=== PATIENT | male | born 1965 | race American Indian/Alaskan Native ===

== ENCOUNTER 2017-09-04 15:44 | Emergency (ER) | payer SELFPAY ==
[2017-09-04 16:14] LABS: Basophils % (Auto) 1.2 % (0.0-1.8); Eosinophils % (Auto) 2.8 % (0.0-4.3); Hematocrit 41.3 % (35.5-45.6); Hemoglobin 14.3 gm/dl (11.8-15.2); Mean Corpuscular HGB Conc 35 % (32-34); Mean Corpuscular Hemoglobin 33 pg (28-32); Mean Corpuscular Volume 94 fl (84-94); Platelet Count 81 K/mm3 (140-440); Red Cell Distribution Width 14.1 % (13.2-15.2); White Blood Count 8.3 K/mm3 (4.5-11.0)
--- NOTE | 2017-09-04 23:16 | Emergency Department Report ---
HPI - General Chief Complaint: Recheck/Abnormal Lab/Rx Time Seen by Provider: 09/04/17 23:05 - HPI HPI: Room 3 The patient is a 52-year-old male presenting with a chief complaint of thrombocytopenia. The patient had labs drawn at his primary physician's office 08/21/2017. The patient states he received a call today from the primary physician instructed him that his platelet count was low (80,000) and that he should come to the emergency department. The patient claims to feeling tired. Patient also states that for 2 to 3 days he has had pain in his right forearm and the joints of his knuckles bilaterally. Patient denies any preceding trauma. Patient denies any history of bruising or rashes. Patient denies any history of fever Location: [see above] Duration: [see above] Quality: Soreness Severity: Moderate Modifying factors: [see above] Context: [see above] Mode of transportation: [not driving] ED Past Medical Hx - Past Medical History Previous Medical History?: Yes Hx Hypertension: Yes Hx Liver Disease: Yes (hepatitis C) Hx Arthritis: Yes - Surgical History Past Surgical History?: No - Family History Family history: no significant - Social History Smoking Status: Current Every Day Smoker (1/2 pack per day) Substance Use Type: None (denies illicit drug use), Alcohol (2 times per week) - Medications Home Medications: Home Medications Medication Instructions Recorded Confirmed Last Taken Type Ibuprofen [Motrin 200 MG tab] 800 mg PO Q6H PRN 01/23/14 04/19/14 Unknown History Cyclobenzaprine [Flexeril 10 MG 10 mg PO BID PRN #60 tablet 04/19/14 Unknown Rx TAB] Lisinopril [Zestril TAB] 20 mg PO QDAY #90 tablet 04/19/14 Unknown Rx ED Review of Systems ROS: Stated complaint: PLATELATE COUNT LOW Other details as noted in HPI Comment: All other systems reviewed and negative Constitutional: denies: chills, fever Eyes: denies: eye pain, eye discharge, vision change ENT: denies: ear pain, throat pain Respiratory: denies: cough, shortness of breath, wheezing Cardiovascular: denies: chest pain, palpitations Endocrine: no symptoms reported Gastrointestinal: denies: abdominal pain, nausea, diarrhea Genitourinary: denies: urgency, dysuria Musculoskeletal: arthralgia, myalgia Skin: denies: rash, lesions Neurological: denies: headache, weakness, paresthesias Psychiatric: denies: anxiety, depression Hematological/Lymphatic: denies: easy bruising Physical Exam - Physical Exam Vital Signs: Vital Signs 09/04/17 09/04/17 15:48 22:51 Temperature 98.9 F 98.5 F Pulse Rate 97 H 76 Respiratory 18 15 Rate Blood Pressure 145/97 Blood Pressure 152/89 [Left] O2 Sat by Pulse 99 100 Oximetry Physical Exam: GENERAL: The patient is well-developed well-nourished male lying on stretcher not appearing to be in acute distress. [] HEENT: Normocephalic. Atraumatic. Extraocular motions are intact. Patient has moist mucous membranes. NECK: Supple. Trachea midline CHEST/LUNGS: Clear to auscultation. There is no respiratory distress noted. HEART/CARDIOVASCULAR: Regular. There is no tachycardia. There is no gallop rub or murmur. ABDOMEN: Abdomen is soft, nontender. Patient has normal bowel sounds. There is no abdominal distention. SKIN: There is no rash. There is no edema. There is no diaphoresis. NEURO: The patient is awake, alert, and oriented. The patient is cooperative. The patient has normal speech MUSCULOSKELETAL: There is no evidence of acute injury. ED Course Vital Signs 09/04/17 09/04/17 15:48 22:51 Temperature 98.9 F 98.5 F Pulse Rate 97 H 76 Respiratory 18 15 Rate Blood Pressure 145/97 Blood Pressure 152/89 [Left] O2 Sat by Pulse 99 100 Oximetry - Consultations Consultation #1: 09/04/17 23:12 Hematology paged (Dr. Green) 09/04/17 23:16 09/04/17 23:[address] Green-states patient does not need to be admitted to the hospital for platelet count of 81,000. May have outpatient workup ED Medical Decision Making - Lab Data Result diagrams: 09/04/17 15:57 - Differential Diagnosis ITP, alcohol abuse, cytopenia, cirrhosis, essential thrombocytopenia Critical care attestation.: If time is entered above; I have spent that time in minutes in the direct care of this critically ill patient, excluding procedure time. ED Disposition Clinical Impression: Thrombocytopenia, Arthralgia Disposition: DC-01 TO HOME OR SELFCARE Is pt being admited?: No Does the pt Need Aspirin: No Condition: Stable Instructions: Thrombocytopenia (ED) Additional Instructions: Return to the emergency department immediately should you develop worsening symptoms, fever, inability to tolerate food or liquid or any other concerns. Referrals: PRIMARY CARE, [Primary Care Provider] - 3-5 Days LB VU MD [Staff Physician] - [facility] (Dr. Vu is a sugar grinder. Please follow up with them for further evaluation of your low platelet count) Time of Disposition: 23:22
[2017-09-04 23:48] VITALS: BP 137/85
== END 2017-09-04 23:47 | disposition home or self-care (01) ==
LOC: ED 15:44
DX: D69.6 Thrombocytopenia, unspecified (principal); I10 Essential (primary) hypertension; M19.90 Unspecified osteoarthritis, unspecified site; F17.210 Nicotine dependence, cigarettes, uncomplicated
CPT/HCPCS: 36415; 85025; 99283

== ENCOUNTER 2021-12-18 05:48 | Inpatient (IN) | payer MEDICAID ==
[~2021-12-18 05:48] MED LIST: ceFAZolin/Water 2 GM/20 ML 2 GM/20 ML SYRINGE IV NR
[2021-12-18] MEDS ORDERED: LACTATED RINGERS 1,000 ML ONE (06:54)
[2021-12-18] MEDS ORDERED: NEOMY 40 MG/POLYMYXIN B 200,000 UNITS/ML (GU) AMPULE IR ONE ×3 (07:20→08:58)
[2021-12-18] MEDS ORDERED: LIDOCAINE MPF (2%) 20 MG/1 ML VIAL 5 ML ONE (07:27)
[2021-12-18] MEDS ORDERED: MIDAZOLAM 2 MG/2 ML INJ ONE ×2 (07:28→07:52)
[2021-12-18] MEDS ORDERED: propofoL 200 MG/20 ML VIAL IV ONE (07:28)
[2021-12-18] MEDS ORDERED: fentaNYL 100 MCG/2 ML INJ ONE ×3 (07:50→09:11)
[2021-12-18] MEDS ORDERED: BUPIVACAINE/PF (0.25%) 2.5 MG/ML 30 ML VIAL INFILTRATI ONE (07:51)
[2021-12-18] MEDS ORDERED: dexAMETHasone 20 MG/5 ML VIAL ONE ×2 (07:52→10:33)
[2021-12-18] MEDS ORDERED: LIDOCAINE (1%) 10 MG/1 ML VIAL 20 ML MDV ONE (07:52)
[2021-12-18] MEDS ORDERED: LACTATED RINGERS 1,000 ML IV SCH (08:00)
[2021-12-18] MEDS ORDERED: KETOROLAC 30 MG/1 ML INJ ONE (08:19)
[2021-12-18] MEDS ORDERED: MORPHINE 10 MG/1 ML INJ ONE (08:19)
[2021-12-18] MEDS ORDERED: BUPIVACAINE/PF (0.5%) 5 MG/1 ML 10 ML VIAL INFILTRATI ONE ×2 (08:19→08:58)
[2021-12-18] MEDS ORDERED: SODIUM CHLORIDE 0.9% 100 ML ONE (08:20)
[2021-12-18] MEDS ORDERED: SODIUM CHLORIDE 0.9% 50 ML ONE (08:20)
[2021-12-18] MEDS ORDERED: HYDROmorphone 1 MG/1 ML INJ ONE (08:45)
[2021-12-18] MEDS ORDERED: CITRIC ACID-SOD CITRATE 500 ML IV ONE (08:51)
[2021-12-18] MEDS ORDERED: SODIUM CHLORIDE 0.9% IRR 1,500 ML BOTTLE IR ONE (08:58)
[2021-12-18] MEDS ORDERED: SODIUM CHLORIDE 0.9% 100 ML IVPB IV ONE (08:58)
[2021-12-18] MEDS ORDERED: MORPHINE 10 MG/1 ML INJ IM ONE (08:58)
[2021-12-18] MEDS ORDERED: SODIUM CHLORIDE 0.9% 50 ML IVPB IV ONE (08:58)
[2021-12-18] MEDS ORDERED: WATER FOR IRRIG STERILE 1,500 ML BOTTLE IR ONE (08:58)
[2021-12-18] MEDS ORDERED: KETOROLAC 30 MG/1 ML INJ IV ONE (08:58)
[2021-12-18] MEDS ORDERED: ONDANSETRON 4 MG/2 ML INJ ONE (09:11)
[2021-12-18] MEDS ORDERED: ESMOLOL 100 MG/10 ML INJ IV ONE (09:11)
[2021-12-18] MEDS ORDERED: ROCURONIUM 50 MG/5 ML INJ IV ONE (09:11)
[2021-12-18] MEDS ORDERED: ONDANSETRON 4 MG/2 ML INJ IV PRN ×2 (09:43→11:33)
[2021-12-18] MEDS ORDERED: HYDROmorphone 1 MG/1 ML INJ IV PRN ×2 (09:43)
[2021-12-18] MEDS ORDERED: SUGAMMADEX SODIUM 200 MG/2 ML VIAL IV ONE (09:50)
--- NOTE | 2021-12-18 10:03 | Anesthesia Day of Surgery ---
Anesthesia Day of Surgery - Day of Surgery Patient Examined: Yes Patient H&P Reviewed: Yes Patient is NPO: Yes
--- NOTE | 2021-12-18 10:07 | Anesthesia Consultation ---
Anesthesia Consult and Med Hx Date of service: 12/18/21 - Airway Anesthetic Teeth Evaluation: Good ROM Head & Neck: Adequate Mental/Hyoid Distance: Adequate Mallampati Class: Class III Intubation Access Assessment: Possibly Difficult - Pulmonary Exam CTA: Yes - Cardiac Exam Cardiac Exam: RRR - Pre-Operative Health Status ASA Pre-Surgery Classification: ASA3 Proposed Anesthetic Plan: General Nerve Block: TAMY, - Pulmonary Hx Smoking: Yes (1/2 PPD) Hx Asthma: No Hx Respiratory Symptoms: No COPD: No Hx Sleep Apnea: No (TRINA PRE SCREEN HIGH RISK) - Cardiovascular System Hx Hypertension: Yes Hx Heart Attack/AMI: No - Central Nervous System Hx Seizures: No CVA: No Hx Back Pain: Yes Hx Psychiatric Problems: No - Endocrine Hx Renal Disease: No Hx Cirrhosis: No Hx Liver Disease: Yes (HCV) Hx Insulin Dependent Diabetes: No Hx Thyroid Disease: No - Hematic Hx Anemia: Yes (hx anemia + thrombocytopenia 2/2 GI bleed s/p transfusion 09/2021) Hx Sickle Cell Disease: No - Other Systems Hx Alcohol Use: No Hx Substance Use: No Hx Cancer: No Hx Obesity: No
[2021-12-18] MEDS ORDERED: SODIUM CHLORIDE 0.9% 1000 ML 1,000 ML ONE (10:33)
[2021-12-18] MEDS ORDERED: ACETAMINOPHEN 325 MG TAB PO PRN (11:33)
--- NOTE | 2021-12-18 11:33 | History and Physical Report ---
History of Present Illness Date of admission: 12/18/21 05:48 Chief complaint: My leg hurts History of present illness: 56 YO Male with Severe DJD, HTN, GERD, Gout presents for evaluation. Patient states that he has experienced severe pain in his right leg and hip. Patient seen and evaluated by orthopedic surgery service. Patient admitted to [facility] for further care and evaluation of the aforementioned symptoms. Patient seen and evaluated by orthopedic surgery service patient is pending surgical intervention. Patient denies fever, chills, chest pain, palpitation, productive cough, skin rash, recent ill contacts, known exposure to COVID-19. No prior mission for review. All medication listed at time of admission has been reconciled. Past History Past Medical History: arthritis, other (See HPI) Past Surgical History: total hip replacement Social history: single. denies: smoking, alcohol abuse Family history: diabetes, hypertension Medications and Allergies Allergies Allergy/AdvReac Type Severity Reaction Status Date / Time No Known Allergies Allergy Verified 12/12/21 12:56 Home Medications Medication Instructions Recorded Confirmed Last Taken Type Acetaminophen [Tylenol Extra 1,000 mg PO PRN PRN 11/28/21 12/12/21 Unknown History Strength] Omeprazole 40 mg PO DAILY 11/28/21 12/18/21 12/17/21 09:00 History allopurinoL [Zyloprim] 100 mg PO QDAY 11/28/21 12/18/21 12/17/21 09:00 History amLODIPine [Norvasc] 10 mg PO DAILY 11/28/21 12/18/21 12/18/21 04:00 History lisinopriL [Zestril TAB] 10 mg PO QDAY 11/28/21 12/18/21 12/17/21 09:00 History Active Meds: Active Medications Hydromorphone HCl (Hydromorphone 1 Mg/1 Ml Inj) 0.25 mg IV Q10MIN PRN PRN Reason: Pain, Moderate (4-6) Stop: 12/18/21 20:00 Hydromorphone HCl (Hydromorphone 1 Mg/1 Ml Inj) 0.5 mg IV Q10MIN PRN PRN Reason: Pain , Severe (7-10) Stop: 12/18/21 20:00 Cefazolin Sodium (Ancef/Sterile Water 2 Gm/20 Ml) 2 gm in 20 mls @ 80 mls/hr IV PREOP NR; Protocol Stop: 12/18/21 23:59 Lactated Ringer's (Lactated Ringers) 1,000 mls @ 75 mls/hr IV DIRECT PRAFUL Last Admin: 12/18/21 07:10 Dose: 75 mls/hr Ondansetron HCl (Ondansetron 4 Mg/2 Ml Inj) 4 mg IV ONCE PRN PRN Reason: Nausea And Vomiting Stop: 12/18/21 13:00 Review of Systems Constitutional: no weight loss, no weight gain, no fever, no chills Ears, nose, mouth and throat: no ear pain, no tinnitis, no nose pain Cardiovascular: no orthopnea, no palpitations, no rapid/irregular heart beat, no edema Respiratory: no cough, no cough with sputum Gastrointestinal: no abdominal pain, no vomiting, no constipation, no change in bowel habits Genitourinary Male: no hematuria, no urinary frequency, no nocturia, no incontinence, no erectile dysfunction Rectal: no pain, no bleeding Musculoskeletal: arthritis, other (Right hip cezar), no shooting arm pain, no arm numbness/tingling, no low back pain Integumentary: no rash, no pruritis, no sores, no wounds, no boils Neurological: no head injury, no paralysis, no parathesias, no numbness, no seizures, no syncope Psychiatric: no anxiety, no sleep disturbances, no disorientation Endocrine: no heat intolerance, no polyphagia, no polyuria, no nocturia, no excessive sweating Hematologic/Lymphatic: no easy bruising Allergic/Immunologic: no urticaria, no wheezing Exam - Constitutional Vitals: Temp Pulse Resp BP Pulse Ox 99.8 F H 107 H 17 124/89 99 12/18/21 06:40 12/18/21 08:12 12/18/21 08:12 12/18/21 08:12 12/18/21 08:12 General appearance: Present: mild distress - EENT Eyes: Present: PERRL ENT: hearing intact, clear oral mucosa - Neck Neck: Present: supple, normal ROM - Respiratory Respiratory effort: normal Respiratory: bilateral: CTA - Cardiovascular Heart Sounds: Present: S1 & S2. Absent: rub, click - Extremities Extremities: pulses symmetrical, No edema Peripheral Pulses: within normal limits - Abdominal General gastrointestinal: Present: soft, non-tender, non-distended, normal bowel sounds Male genitourinary: Present: normal - Integumentary Integumentary: Present: clear, warm, dry - Musculoskeletal Musculoskeletal: gait normal, strength equal bilaterally - Psychiatric Psychiatric: appropriate mood/affect, intact judgment & insight - Neurologic Neurologic: CNII-XII intact, moves all extremities Assessment and Plan - Patient Problems (1) Osteoarthritis of right hip Current Visit: Yes Status: Acute Qualifiers: Osteoarthritis type: unspecified Qualified Code(s): M16.11 - Unilateral primary osteoarthritis, right hip Plan to address problem: Orthopedic surgery team consulted. Patient pending surgical intervention. Pain control, supportive care, physical therapy consulted, (2) Hypertension Current Visit: Yes Status: Acute Qualifiers: Hypertension type: primary hypertension Qualified Code(s): I10 - Essential (primary) hypertension Plan to address problem: Monitor blood pressure every shift, continue medical management. (3) GERD (gastroesophageal reflux disease) Current Visit: Yes Status: Acute Qualifiers: Esophagitis presence: without esophagitis Qualified Code(s): K21.9 - Gastro-esophageal reflux disease without esophagitis Plan to address problem: PPI therapy, supportive care. (4) Gout Current Visit: Yes Status: Acute Plan to address problem: Continue medical management, supportive care. No acute exacerbation at this time. (5) DVT prophylaxis Current Visit: Yes Status: Acute Plan to address problem: SCD to bilateral lower extremities while in bed, prophylactic anticoagulation. (6) Advance care planning Current Visit: Yes Status: Acute Plan to address problem: Disease initially conducted, care plan discussed, diagnosis discussed, prognosis discussed, patient is full code. Patient acknowledges understanding and agreement with care plan. +30 minutes.
[2021-12-18] MEDS ORDERED: SODIUM CHLORIDE 0.9% 1000 ML 1,000 ML IV SCH (11:45)
--- NOTE | 2021-12-18 12:07 | XRay Report ---
Right hip one view INDICATION: Postop FINDINGS: Right hip arthroplasty is satisfactory position. No acute fracture. Signer Name: Glen Schuster MD Signed: 12/18/2021 12:03 PM Workstation Name: [id number]
--- NOTE | 2021-12-18 12:16 | Operative Report ---
Operative Report Operative Report: OP REPORT : Preop diagnosis : Osteoarthritis end-stage, right hip Postop diagnosis: Same Procedure: Elective total hip replacement, RIGHT hip Surgeon: Rickey Peters MD ophthalmic surgical assistant: none Anesthesia: General with endotracheal tube Details of operative technique : Patient was prepared in the holding area having been cleared for surgery for elective total hip replacement, right hip. Then brought to the operating room where he underwent satisfactory general anesthesia and was placed in the decubitus position with the right hip up. All pressure points were well-padded. Axillary roll was placed under the left axilla and the hip was prepped and draped in the usual sterile fashion with DuraPrep solution per total hip protocol. Ancef 2 g was administered IV at the start of the case. Space suits were worn by the operating room team. The hip was opened through a straight kevin-lateral approach. Bleeders were clamped and cauterized with the Bovie. Dissection was carried down through the fibrofatty layer and the tensor fascial was split the length of the incision. A Charnley retractor was placed and the hip was externally rotated. The Gluteus medius and minimus were then removed from the bone. The entire capsule was excised utilizing an inverted T incision and retractors were placed anteriorly and posteriorly. The femoral head was able to be dislocated revealing severe osteoarthritis affecting both sides of the joint. Utilizing a template the neck cut was made with an oscillating saw removing the femoral head and leaving a minimal of 10 mm of femoral neck. Attention was then turned toward the socket. The labral tissue and capsular remnants were removed outlining the boundaries of the acetabulum. Socket was then deepened as it was also expanded to a size 50 mm. The patient was noted to have excellent bone with good cancellous bleeding. A specially coated acetabular cup with outside diameter 50 mm was impacted in place. This had excellent rotational stability and was placed in the anatomic position with the correct amount of anteversion. 32 mm liner was placed into the cup and impacted securely. Attention was then directed to the proximal femur. The leg was flexed up and placed into the sterile bag. A box osteotome was utilized to create a lateral starting point and the canal was reamed with a simple starter reamer and progressed up to a #10 size reamer. Following this the occipital femur was prepared with broaches up to a #12 size stem. This produced excellent purchase with outstanding rotational stability ; the patient required a +0 neck length which gave excellent orthodox of leg lengths and stability. Following this the wound was then irrigated copiously with antibiotic solution. The actual [employer] stem #12 with high offset was impacted in place and a 32 mm Oxinium head was placed on the stem and the hip was reduced. Hip was then taken through full range of motion and the shuck test was negative as the hip proved to be quite stable in all directions. The wound was then irrigated once again with antibiotic solution. Capsular tissue and deep muscle was repaired with #2 Ethibond suture for the gluteus medius which were repaired back to the bone. It was oversewn with #2 Ethibond suture. The tensor fascia maria luz was then repaired with a running locking suture of 0 Vicryl and the subcu layers were closed with 2-0 Vicryl. An occlusive compressive dressing was applied after Steri-Strips were placed on the skin. Patient was then awakened and taken to recovery room in excellent condition. Estimated blood loss: 250 cc (cell saver was utilized and approximately 150 was given back. Drains : None Complications : Non
--- NOTE | 2021-12-18 15:12 | Post Anesthesia Evaluation ---
- Post Anesthesia Evaluation Patient Participated: Yes Airway Patent: Yes Stable Respiratory Function: Yes Nausea/Vomiting: No Temp > 96.8F: Yes Pain Manageable: Yes Adequeate Hydration: Yes Anesthesia Complications: No Block Receding Appropriately: Yes Patient on Ventilator: No
[2021-12-18] MEDS: oxyCODONE /ACETAMINOPHEN 5-325MG TAB PO PRN (21:48)
[2021-12-18] MEDS: HEPARIN 5,000 UNIT/1 ML VIAL SUB-Q SCH (21:48)
[2021-12-19] MEDS: oxyCODONE /ACETAMINOPHEN 5-325MG TAB PO PRN ×3 (03:04→15:26)
[2021-12-19 05:54] LABS: Basophils % (Auto) 0.2 % (0.0-1.8); Hemoglobin 7.9 gm/dl (11.8-15.2); Lymphocytes # (Auto) 1.7 K/mm3 (1.2-5.4); Lymphocytes % (Auto) 11.6 % (13.4-35.0); Mean Corpuscular HGB Conc 32 % (32-34); Mean Corpuscular Volume 91 fl (84-94); Monocytes # (Auto) 1.1 K/mm3 (0.0-0.8); Monocytes % (Auto) 7.5 % (0.0-7.3); Platelet Count 133 K/mm3 (140-440); Red Blood Count 2.75 M/mm3 (3.65-5.03)
[2021-12-19] MEDS: HEPARIN 5,000 UNIT/1 ML VIAL SUB-Q SCH ×2 (09:54→21:50)
[2021-12-19] MEDS: LISINOPRIL 20 MG TAB PO SCH (09:55)
[2021-12-19] MEDS: amLODIPine 10 MG TAB PO SCH (09:55)
[2021-12-19] MEDS: PANTOPRAZOLE 40 MG TAB PO SCH (09:55)
[2021-12-19] MEDS: allopurinoL 100 MG TAB PO SCH (09:56)
[2021-12-19] MEDS ORDERED: NON-FORMULARY EACH (Omeprazole [Omeprazole] 40 MG Capsule.Dr) PO SCH (10:00)
--- NOTE | 2021-12-19 16:41 | Progress Note ---
Subjective Date of service: 12/19/21 Principal diagnosis: POD #1 S/P THR RIGHT Hip Interval history: S : 1st Postop day, S/P THR RIGHT hip; doing well with physical therapy and having no major complaints whatsoever. O : She is awake and alert lying in hospital bed. Examination of the right hip shows new dressing applied (from excessive serosanguineous drainage last evening) no obvious drainage today. Able to do a straight leg raise with assistance. Postoperative proximal thigh pain. A: Satisfactory postop course, total hip replacement, RIGHT hip P : He is doing extremely well for his first postoperative day. Spoke with physical therapy and they say he had an excellent day with therapy. Strong probability that he could be discharged home tomorrow with of course a home health care nurse to monitor the wound and home health physical therapy that would come to his house at least 3 days a week. He will need on discharge : (1) Home health physical therapy with total hip protocol / partial weightbearing,; (2) DVT prophylaxis with Eliquis or other NOAC drug; (3) appropriate pain medication in the form of hydrocodone 5 mg every 6 hours as needed; (4) occlusive dressing placed on day of discharge; (5) follow-up in office in 2 weeks Objective Vital signs: Vital Signs - 12hr 12/19/21 12/19/21 06:20 08:26 Temperature 97.8 F 98.7 F Pulse Rate 102 H 101 H Respiratory 18 18 Rate Blood Pressure 145/78 O2 Sat by Pulse 94 97 Oximetry - Labs CBC & BMP: 12/19/21 04:38 Labs: Abnormal lab results 12/19/21 Range/Units 04:38 WBC 14.2 H (4.5-11.0) K/mm3 RBC 2.75 L (3.65-5.03) M/mm3 Hgb 7.9 L (11.8-15.2) gm/dl Hct 25.0 L (35.5-45.6) % RDW 19.0 H (13.2-15.2) % Plt Count 133 L (140-440) K/mm3 Lymph % (Auto) 11.6 L (13.4-35.0) % [place]quois % (Auto) 7.5 H (0.0-7.3) % [place] # (Auto) 1.1 H (0.0-0.8) K/mm3 Seg Neutrophils % 80.7 H (40.0-70.0) % Seg Neutrophils # 11.4 H (1.8-7.7) K/mm3
[2021-12-19] MEDS: HYDROmorphone 1 MG/1 ML INJ IV PRN (20:44)
[2021-12-20] MEDS: oxyCODONE /ACETAMINOPHEN 5-325MG TAB PO PRN ×2 (06:33→19:53)
--- NOTE | 2021-12-20 08:08 | Progress Note ---
Assessment and Plan Assessment and Plan - Patient Problems (1) Status post right hip replacement Current Visit: Yes Status: Acute Qualifiers: Osteoarthritis type: unspecified Qualified Code(s): M16.11 - Unilateral primary osteoarthritis, right hip Physical therapy to be continued Discharge planning per orthopedics (2) Hypertension Current Visit: Yes Status: Acute Qualifiers: Hypertension type: primary hypertension Qualified Code(s): I10 - Essential (primary) hypertension Plan to address problem: Monitor blood pressure every shift, continue medical management. (3) GERD (gastroesophageal reflux disease) Current Visit: Yes Status: Acute Qualifiers: Esophagitis presence: without esophagitis Qualified Code(s): K21.9 - Gastro-esophageal reflux disease without esophagitis Plan to address problem: PPI therapy, supportive care. (4) Gout Current Visit: Yes Status: Acute Plan to address problem: Continue medical management, supportive care. No acute exacerbation at this time. (5) DVT prophylaxis Current Visit: Yes Status: Acute Plan to address problem: SCD to bilateral lower extremities while in bed, prophylactic anticoagulation. (6) Advance care planning Current Visit: Yes Status: Acute Plan to address problem: Disease initially conducted, care plan discussed, diagnosis discussed, prognosis discussed, patient is full code. Patient acknowledges understanding and agree ment with care plan. +30 minutes. Subjective Date of service: 12/19/21 Principal diagnosis: POD #1 S/P THR RIGHT Hip Interval history: 56 YO Male with Severe DJD, HTN, GERD, Gout presents for evaluation. Patient states that he has experienced severe pain in his right leg and hip. Patient seen and evaluated by orthopedic surgery service. Patient admitted to [facility] for further care and evaluation of the aforementioned symptoms. Patient seen and evaluated by orthopedic surgery service patient is pending surgical intervention. Patient denies fever, chills, chest pain, palpitation, productive cough, skin rash, recent ill contacts, known exposure to COVID-19. No prior mission for review. All medication listed at time of admission has been reconciled. 12/19/2021 Status post right hip replacement today Postop doing well Objective - Constitutional Vitals: Vital Signs - 12hr 12/19/21 12/20/21 12/20/21 23:25 00:53 03:32 Temperature 98.0 F 98.1 F Pulse Rate 108 H 97 H Respiratory 14 18 Rate Blood Pressure 138/80 127/73 O2 Sat by Pulse 93 96 96 Oximetry General appearance: Present: no acute distress, well-nourished - EENT Eyes: PERRL, EOM intact ENT: hearing intact, clear oral mucosa Ears: bilateral: normal - Neck Neck: supple, normal ROM - Respiratory Respiratory effort: normal Respiratory: bilateral: CTA - Breasts Breasts: normal - Cardiovascular Heart rate: 78 Rhythm: regular Heart Sounds: Present: S1 & S2. Absent: gallop, rub Extremities: pulses intact, No edema, normal color, Full ROM, abnormal (Decreased range of motion of the right hip) Extremity abnormal: other (Same as above) - Gastrointestinal General gastrointestinal: Present: soft, non-tender, non-distended, normal bowel sounds - Genitourinary Male genitourinary: normal - Integumentary Integumentary: clear, warm, dry - Musculoskeletal Musculoskeletal: 1, strength equal bilaterally - Neurologic Neurologic: moves all extremities - Psychiatric Psychiatric: memory intact, appropriate mood/affect, intact judgment & insight - Labs CBC & Chem 7: 12/19/21 04:38
[2021-12-20] MEDS: HYDROmorphone 1 MG/1 ML INJ IV PRN ×2 (08:30→17:25)
[2021-12-20] MEDS: PANTOPRAZOLE 40 MG TAB PO SCH (10:42)
[2021-12-20] MEDS: allopurinoL 100 MG TAB PO SCH (10:42)
[2021-12-20] MEDS: LISINOPRIL 20 MG TAB PO SCH (10:42)
[2021-12-20] MEDS: amLODIPine 10 MG TAB PO SCH (10:43)
--- NOTE | 2021-12-20 10:51 | Progress Note ---
Assessment and Plan Assessment and plan: Right hip replacement Hypertension GERD Gout 12/20/2021. Await physical therapy recommendations for discharge planning. Continue supportive care and pain control History Interval history: No new issues overnight. Hospitalist Physical - Constitutional Vitals: Temp Pulse Resp BP Pulse Ox 98.1 F 97 H 18 127/73 93 12/20/21 03:32 12/20/21 03:32 12/20/21 03:32 12/20/21 03:32 12/20/21 08:52 General appearance: Present: no acute distress, well-nourished - EENT Eyes: Present: PERRL, EOM intact ENT: hearing intact, clear oral mucosa, dentition normal - Neck Neck: Present: supple, normal ROM - Respiratory Respiratory effort: normal Respiratory: bilateral: CTA - Cardiovascular Rhythm: regular Heart Sounds: Present: S1 & S2. Absent: gallop, rub - Extremities Extremities: no ischemia, No edema, Full ROM - Abdominal General gastrointestinal: soft, non-tender, non-distended, normal bowel sounds - Integumentary Integumentary: Present: clear, warm, dry - Neurologic Neurologic: CNII-XII intact, moves all extremities Results - Labs CBC & Chem 7: 12/19/21 04:38 Labs: Laboratory Last Values WBC 14.2 K/mm3 (4.5-11.0) H 12/19/21 04:38 RBC 2.75 M/mm3 (3.65-5.03) L 12/19/21 04:38 Hgb 7.9 gm/dl (11.8-15.2) L 12/19/21 04:38 Hct 25.0 % (35.5-45.6) L 12/19/21 04:38 MCV 91 fl (84-94) 12/19/21 04:38 MCH 29 pg (28-32) 12/19/21 04:38 MCHC 32 % (32-34) 12/19/21 04:38 RDW 19.0 % (13.2-15.2) H 12/19/21 04:38 Plt Count 133 K/mm3 (140-440) L 12/19/21 04:38 Lymph % (Auto) 11.6 % (13.4-35.0) L 12/19/21 04:38 [place] % (Auto) 7.5 % (0.0-7.3) H 12/19/21 04:38 Eos % (Auto) 0.0 % (0.0-4.3) 12/19/21 04:38 Baso % (Auto) 0.2 % (0.0-1.8) 12/19/21 04:38 Lymph # (Auto) 1.7 K/mm3 (1.2-5.4) 12/19/21 04:38 [place] # (Auto) 1.1 K/mm3 (0.0-0.8) H 12/19/21 04:38 Eos # (Auto) 0.0 K/mm3 (0.0-0.4) 12/19/21 04:38 Baso # (Auto) 0.0 K/mm3 (0.0-0.1) 12/19/21 04:38 Seg Neutrophils % 80.7 % (40.0-70.0) H 12/19/21 04:38 Seg Neutrophils # 11.4 K/mm3 (1.8-7.7) H 12/19/21 04:38 POC Glucose 96 mg/dL (70-105) 12/20/21 08:15 SARS-CoV-2 (PCR) Negative (Negative) 12/14/21 10:00 Blood Type B POSITIVE 12/18/21 06:45 Antibody Screen Negative 12/18/21 06:45 [place]/IV: Voiding Method Urinal Active Medications - Current Medications Current Medications: Generic Name Dose Route Start Last Admin Trade Name Freq PRN Reason Stop Dose Admin Acetaminophen 650 mg 12/18/21 11:33 Acetaminophen 325 Mg Tab PO Q4H PRN Pain MILD(1-3)/Fever >100.5/ROJAS Allopurinol 100 mg 12/19/21 10:00 12/20/21 10:42 Allopurinol 100 Mg Tab PO 100 mg QDAY PRAFUL Administration Amlodipine Besylate 10 mg 12/19/21 10:00 12/20/21 10:43 Amlodipine 10 Mg Tab PO 10 mg DAILY PRAFUL Administration Heparin Sodium (Porcine) 5,000 unit 12/18/21 22:00 12/19/21 21:50 Heparin 5,000 Unit/1 Ml Vial SUB-Q 5,000 unit Q12HR PRAFUL Administration Hydromorphone HCl 0.5 mg 12/18/21 11:33 12/20/21 08:30 Hydromorphone 1 Mg/1 Ml Inj IV 0.5 mg Q3H PRN Administration Pain , Severe (7-10) Labetalol HCl 5 mg 12/19/21 09:00 Labetalol 20 Mg/4 Ml Inj IV Q6H PRN Hypertension Lisinopril 10 mg 12/19/21 10:00 12/20/21 10:42 Lisinopril 20 Mg Tab PO 10 mg QDAY PRAFUL Administration Ondansetron HCl 4 mg 12/18/21 11:33 Ondansetron 4 Mg/2 Ml Inj IV Q8H PRN Nausea And Vomiting Oxycodone/Acetaminophen 1 tab 12/18/21 11:33 12/20/21 06:33 Oxycodone /Acetaminophen 5-325mg Tab PO 1 tab Q6H PRN Administration Pain, Moderate (4-6) Pantoprazole Sodium 40 mg 12/19/21 10:00 12/20/21 10:42 Pantoprazole 40 Mg Tab PO 40 mg DAILY PRAFUL Administration Sodium Chloride 10 ml 12/18/21 22:00 12/20/21 10:43 Sodium Chloride 0.9% 10 Ml Flush Syringe IV 10 ml BID PRAFUL Administration Sodium Chloride 10 ml 12/18/21 11:33 Sodium Chloride 0.9% 10 Ml Flush Syringe IV PRN PRN LINE FLUSH
[2021-12-20] MEDS: HEPARIN 5,000 UNIT/1 ML VIAL SUB-Q SCH ×2 (11:29→22:47)
[2021-12-21 04:03] VITALS: BP 131/70
[2021-12-21] MEDS: oxyCODONE /ACETAMINOPHEN 5-325MG TAB PO PRN (06:14)
--- NOTE | 2021-12-21 08:51 | Discharge Summary ---
Providers - Providers Date of Admission: 12/18/21 05:48 Date of discharge: 12/21/21 Attending physician: JARRELL MAGALLANES 12/18/21 11:35 Consult to Case Management [CONS] Routine Services Needed at Discharge: Other Notified:: in am Additional Physician Instructions: Home health plan for disc. home as early as sakina. afternoon. Physical Therapy Evaluation and Treat [CONS] Urgent Comment: Reason For Exam: hip replacement 12/18/21 11:40 Physical Therapy Evaluation and Treat [CONS] Routine Comment: Reason For Exam: s/p right hip replacement Weight bearing status?: Partial wt bearing Assistive devices?: crutches or walker 12/18/21 21:00 Consult to Physician [CONS] Routine Comment: Consulting Provider: CHRISTOPHER AVINA Physician Instructions: Reason For Exam: severe Hip djd Primary care physician: [employer] Hospitalization Reason for admission: Elective total hip replacement, RIGHT hip Hospital course: 56-year-old female who presented with diagnosis of end-stage right hip osteoarthritis underwent elective total right hip replacement. The patient underwent surgical intervention on 12/18/2021 with orthopedics and subsequent physical therapy. Patient also received adequate pain control and supportive care physical therapy recommended rolling walker and a 3 and 1 bedside commode along with outpatient physical therapy. Case management was consulted and arrange for appropriate discharge planning. Dedicated discharge time 32 minutes. Disposition: 30 STILL A PATIENT Final Discharge Diagnosis (Prints w/discharge instructions): Right hip osteoarthritis, hip replacement Core Measure Documentation - Palliative Care Palliative Care/ Comfort Measures: Not Applicable - Core Measures Any of the following diagnoses?: none Exam - Constitutional Vitals: Temp Pulse Resp BP Pulse Ox 98.3 F 103 H 14 131/70 92 12/21/21 03:23 12/21/21 03:23 12/21/21 03:23 12/21/21 03:23 12/21/21 03:23 General appearance: Present: no acute distress, well-nourished - EENT Eyes: Present: PERRL ENT: hearing intact, clear oral mucosa - Neck Neck: Present: supple, normal ROM - Respiratory Respiratory effort: normal Respiratory: bilateral: CTA - Cardiovascular Heart Sounds: Present: S1 & S2. Absent: rub, click - Extremities Extremities: pulses symmetrical, No edema Peripheral Pulses: within normal limits - Abdominal General gastrointestinal: Present: soft, non-tender, non-distended, normal bowel sounds Male genitourinary: Present: normal - Integumentary Integumentary: Present: clear, warm, dry - Musculoskeletal Musculoskeletal: gait normal, strength equal bilaterally - Psychiatric Psychiatric: appropriate mood/affect, intact judgment & insight - Neurologic Neurologic: CNII-XII intact, moves all extremities Plan Activity: advance as tolerated Weight Bearing Status: Weight Bear as Tolerated Diet: regular Wound: per your surgeon's advice Special Instructions: physical therapy Durable Medical Equipment Needed Upon Discharge: Walker-Rolling, Bedside Commode Follow up with: PRIMARY CARE,MD [Primary Care Provider] - 7 Days Prescriptions: amLODIPine 10 mg PO DAILY #30 oxyCODONE /ACETAMINOPHEN [Percocet 5/325 mg] 1 tab PO Q6H PRN #10 tablet PRN Reason: Pain, Moderate (4-6) lisinopriL [Zestril TAB] 10 mg PO QDAY #30 allopurinoL [Zyloprim] 100 mg PO QDAY #30
[2021-12-21] MEDS: amLODIPine 10 MG TAB PO SCH (09:35)
[2021-12-21] MEDS: PANTOPRAZOLE 40 MG TAB PO SCH (09:36)
[2021-12-21] MEDS: LISINOPRIL 20 MG TAB PO SCH (09:36)
[2021-12-21] MEDS: allopurinoL 100 MG TAB PO SCH (09:36)
[2021-12-21] MEDS: HEPARIN 5,000 UNIT/1 ML VIAL SUB-Q SCH (09:36)
[2021-12-21] MEDS ORDERED: APIXABAN 2.5 MG TAB PO SCH (10:00)
[2021-12-21 10:32] LABS: Hematocrit 27.5 % (35.5-45.6); Hemoglobin 8.8 gm/dl (11.8-15.2); Mean Corpuscular HGB Conc 32 % (32-34); Mean Corpuscular Volume 90 fl (84-94); Platelet Count 200 K/mm3 (140-440); Red Blood Count 3.06 M/mm3 (3.65-5.03); Red Cell Distribution Width 19.4 % (13.2-15.2)
[2021-12-21 10:44] LABS: INR 0.96 (0.87-1.13)
[2021-12-21 10:45] LABS: Partial Thromboplastin Time 27.5 Sec. (24.2-36.6)
== END 2021-12-21 11:55 | disposition home or self-care (01) | DRG 470 ==
LOC: 3A 05:48 → 4A 20:19
PROVIDERS: ADMIT Orthopaedic Surgery; ATTEND Hospitalist
PROC: 0SR906Z Replacement of Right Hip Joint with Oxidized Zirconium on Polyethylene Synthetic Substitute, Open Approach (ICD-10-PCS; principal; 2021-12-18)
PROC: 30233H0 Transfusion of Autologous Whole Blood into Peripheral Vein, Percutaneous Approach (ICD-10-PCS; 2021-12-18)
DX: M16.11 Unilateral primary osteoarthritis, right hip (principal); I10 Essential (primary) hypertension; K21.9 Gastro-esophageal reflux disease without esophagitis; M10.9 Gout, unspecified; Z20.822 Contact with and (suspected) exposure to COVID-19; Z83.3 Family history of diabetes mellitus; Z82.49 Family history of ischemic heart disease and other diseases of the circulatory system
CPT/HCPCS: 36415; 64450; 82565; 82962; 85025; 85027; 85610; 85730; 86850; 86900; 86901; 88304; 88311; G0378; J3490; J7120; Q0162; C1776; J0690; J1100; J1170; J1644; J1885; J2250; J2270; J2405; J2704; J3010; J7030; U0003

== ENCOUNTER 2022-06-14 08:28 | Outpatient (CLI) | payer MEDICAID ==
--- NOTE | 2022-06-14 10:13 | XRay Report ---
Thoracic spine 3 views INDICATION: Back pain FINDINGS: Mild curvature the spine. Pedicles appear normal throughout. No severe compression injury. No subluxation. Signer Name: Glen Schuster MD Signed: 06/14/2022 10:09 AM Workstation Name: [id number]
== END 2022-06-14 08:29 | disposition home or self-care (01) ==
LOC: XRAY 08:28
PROVIDERS: ATTEND Orthopaedic Surgery
DX: M54.50 Low back pain, unspecified (principal)
CPT/HCPCS: 72080